=== PATIENT | female | born 1980 | race African-American/Black ===

== ENCOUNTER 2016-09-27 22:58 | Emergency (ER) | payer SELFPAY ==
[2016-09-27 23:07] VITALS: BP 120/82; PULSE 75; TEMP 97.8; BMI 28.8
[2016-09-27] MEDS ORDERED: KETOROLAC TROMETHAMINE 30 MG/1 ML VIAL IVPUSH ONE (23:07)
[2016-09-27] MEDS ORDERED: diazePAM 5 MG TABLET PO ONE (23:07)
--- NOTE | 2016-09-27 23:10 | PDOC ---
History of Present Illness - General Chief Complaint: Pain, Acute Stated Complaint: BACK PAIN RADIATING DOWN RIGHT LEG Time Seen by Provider: 09/27/16 23:05 History Source: Patient Exam Limitations: No Limitations - History of Present Illness Initial Comments: 09/27/16 23:05 36yo F with h/o low back pain and upper back pain . no new weakness or numbness. no bowel or bladder incontinence. has had for one month. today pain severe enough came to ED . taking motrin for pain no relief. pain lower back radiating down right leg. worse with position change and walking. has had similar in the past. 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 no f/c has noted blood in urine one week ago. no frequency dysuria or urgency 09/27/16 23:07 Past History - Past Medical History Allergies/Adverse Reactions: Allergies Allergy/AdvReac Type Severity Reaction Status Date / Time No Known Allergies Allergy Verified 09/27/16 22:59 Home Medications: Ambulatory Orders Diazepam [Valium] 5 mg PO Q8H PRN #15 tablet MDD 3 09/27/16 Metformin HCl [Glucophage] 2,000 mg PO DAILY 09/27/16 Methylprednisolone [Medrol Dose Aj] 4 mg PO ASDIR #21 tablet 09/28/16 Oxycodone HCl/Acetaminophen [Percocet 5-325 mg Tablet] 1 tab PO Q4H PRN #15 tablet MDD 6 09/28/16 Review of Systems - Review of Systems Constitutional: No: Chills, Diaphoresis, Fever Respiratory: No: Cough, Orthopnea, Stridor Cardiac (ROS): No: Chest Pain ABD/GI: No: Vomiting : Yes: Hematuria. No: Burning, Dysuria Musculoskeletal: Yes: Back Pain. No: Gout, Joint Pain, Muscle Weakness Integumentary: No: Bruising, Change in Color Neurological: No: Headache, Numbness, Weakness, Unsteady Gait All Other Systems: Reviewed and Negative *Physical Exam - Physical Exam General Appearance: Yes: Nourished, Appropriately Dressed HEENT: positive: EOMI, REBECA Neck: positive: Trachea midline Respiratory/Chest: positive: Lungs Clear, Normal Breath Sounds. negative: Chest Tender, Respiratory Distress Cardiovascular: positive: Regular Rhythm, Regular Rate, S1, S2. negative: Edema Gastrointestinal/Abdominal: positive: Normal Bowel Sounds, Flat, Soft. negative : Tender Musculoskeletal: positive: Normal Inspection, CVA Tenderness, CVA Tenderness (R) , Muscle Spasm. negative: CVA Tenderness (L), Decreased Range of Motion, Vertebral Tenderness Extremity: positive: Normal Capillary Refill, Normal Inspection Integumentary: positive: Normal Color, Dry, Warm Neurologic: positive: Fully Oriented, Alert, Normal Mood/Affect, Normal Response , Motor Strength 5/5. negative: Sensory Deficit (bilat lower ext 5/5 flex/ ext. sensation intact throught. no midline v body tenderness. right lumbar paraspinal m spasm ttp. ) Medical Decision Making - Medical Decision Making 09/27/16 23:12 36 yo F with h/o PCOS here with sciatica like sxs. normal nuerological exam distally n/v intact. differential includes uti pyelo. plan ua ucg. pain control with nsaid and muscle relaxers. plan dc with medrol dose aj and muscle relaxer. pain medication. follow up with pcp for outp physical therapy. 09/28/16 00:35 pt feeling improved. ua negative ucg negative. dc hoem with rx for valium , percocet and medrol dose aj *DC/Admit/Observation/Transfer Diagnosis at time of Disposition: Sciatica - Discharge Dispostion Disposition: HOME Condition at time of disposition: Improved - Prescriptions Prescriptions: Methylprednisolone [Medrol Dose Aj] 4 mg PO ASDIR #21 tablet Oxycodone HCl/Acetaminophen [Percocet 5-325 mg Tablet] 1 tab PO Q4H PRN #15 tablet MDD 6 PRN Reason: Pain Diazepam [Valium] 5 mg PO Q8H PRN #15 tablet MDD 3 PRN Reason: Muscle Spasms - Patient Instructions Printed Discharge Instructions: Sciatica Additional Instructions: take medrol dose aj steroids as directed. take valium 5 mg every 8 hours as needed for muscle spasm. take percocet one every 6 hours as needed for pain. do not take at the same time as valium. return for numbness weakness or any concerns . follow up with your primary doctor. call to schedule. if pain continues you may need an outpatient MRI discuss with your primary doctor for referral.
[2016-09-27 23:14] LABS: PH,URINE 5.5 (4.5-8); URINE APPEARANCE Clear; URINE BILIRUBIN Negative (NEGATIVE); URINE BLOOD Negative (NEGATIVE); URINE COLOR YELLOW; URINE GLUCOSE (UA) Negative (NEGATIVE); URINE KETONE Negative (NEGATIVE); URINE LEUK ESTERASE 1+ (NEGATIVE); URINE NITRITE Negative (NEGATIVE); URINE PROTEIN Negative (NEGATIVE); URINE UROBILINOGEN 0.2 (0.2-1.0)
[2016-09-27 23:36] LABS: URINE RBC 0-2 /hpf (0-3)
== END 2016-09-28 00:40 | disposition home or self-care (01) ==
LOC: FER 22:58
PROC: 3E0333Z Introduction of Anti-inflammatory into Peripheral Vein, Percutaneous Approach (ICD-10-PCS; principal; 2016-09-27)
DX: M54.41 Lumbago with sciatica, right side (principal); E11.9 Type 2 diabetes mellitus without complications; Z79.84 Long term (current) use of oral hypoglycemic drugs; E28.2 Polycystic ovarian syndrome
CPT/HCPCS: 81003; 81015; 84703; 99281-25

== ENCOUNTER 2017-07-13 15:04 | Emergency (ER) | payer OTHER ==
[2017-07-13 15:14] VITALS: BP 95/60; PULSE 81; TEMP 98.3; BMI 27.1
[2017-07-13] MEDS ORDERED: diazePAM 5 MG TABLET PO ONE (15:53)
--- NOTE | 2017-07-13 15:53 | PDOC ---
History of Present Illness - History of Present Illness Initial Comments: 07/13/17 16:01 Patient is a 37F, with PMHx of PCOS , who presents today with recurring back pain. Patient states that her back pain is chronic and has presented itself intermittently for the past 8 years. She states that her back pain began 3 day sago (Wednesday) and has worsened since. She describes the pain as burning, originating in the right hip and travels to the lower back, worse with movement , and worse on the right side. She states that she took a muscle relaxer today without relief. She also reports some numbness, tingling, and weakness in her right leg. She states that the last time her back pain was this bad was approximately 1 year ago when she was seen here. At the time she was given Valium and Percocet and referred to physical therapy. She states that she does not see a physical therapist or a pain management doctor. She denies recent trauma or injury, she denies recent fever or incontinence. 07/13/17 16:05 <Chetna Carrera - Last Filed: 07/13/17 16:35> - General History Source: Patient Exam Limitations: No Limitations <Katt Lamas - Last Filed: 07/13/17 17:23> - General Chief Complaint: Back Pain Stated Complaint: back pain Past History <Chetna Carrera - Last Filed: 07/13/17 16:35> - Past Medical History COPD: No Other medical history: PCOS - Suicide/Smoking/Psychosocial Hx Smoking History: Never smoked Have you smoked in the past 12 months: No Hx Alcohol Use: No Drug/Substance Use Hx: No Substance Use Type: None <Katt Lamas - Last Filed: 07/13/17 17:23> - Past Medical History Allergies/Adverse Reactions: Allergies Allergy/AdvReac Type Severity Reaction Status Date / Time No Known Allergies Allergy Verified 07/13/17 15:05 Home Medications: Ambulatory Orders Metformin HCl [Glucophage] 2,000 mg PO DAILY 09/27/16 Diazepam [Valium] 5 mg PO Q8H PRN #15 tablet MDD 3 07/13/17 Methylprednisolone [Medrol Dose Aj] 4 mg PO ASDIR #21 tablet 07/13/17 Vit Calc,Iron,Folic [ Vitamins] 1 each PO DAILY 07/13/17 Review of Systems - Review of Systems Comments:: 07/13/17 16:02 GENERAL/CONSTITUTIONAL: No fever. +chills. HEAD, EYES, EARS, NOSE AND THROAT: No change in vision. No ear pain or discharge. No sore throat. GASTROINTESTINAL: No nausea, vomiting, diarrhea or constipation. GENITOURINARY: No dysuria, frequency, or change in urination. CARDIOVASCULAR: No chest pain or shortness of breath. RESPIRATORY: No cough, wheezing, or hemoptysis. MUSCULOSKELETAL: No joint or muscle swelling or pain. No neck pain. +back pain. SKIN: No rash NEUROLOGIC: +weakness, +numbness & tingling in right leg. No headache, vertigo , loss of consciousness. ENDOCRINE: No increased thirst. No abnormal weight change. HEMATOLOGIC/LYMPHATIC: No anemia, easy bleeding, or history of blood clots. ALLERGIC/IMMUNOLOGIC: No hives or skin allergy. <Chetna Carrera - Last Filed: 07/13/17 16:35> *Physical Exam - Vital Signs Last Vital Signs Temp Pulse Resp BP Pulse Ox 98.3 F 81 18 95/60 100 07/13/17 15:05 07/13/17 15:05 07/13/17 15:05 07/13/17 15:05 07/13/17 15:05 - Physical Exam Comments: 07/13/17 16:03 GENERAL: Awake, alert, and fully oriented, in no acute distress HEAD: No signs of trauma EYES: PERRLA, EOMI, sclera anicteric, conjunctiva clear ENT: Auricles normal inspection, nares patent, Moist mucosa NECK: Normal ROM, supple, no lymphadenopathy, JVD, or masses LUNGS: Breath sounds equal, clear to auscultation bilaterally. No wheezes, and no crackles HEART: Regular rate and rhythm, normal S1 and S2, no murmurs, rubs or gallops BACK: No midline spinal tenderness. Paraspinal muscle spasms to right lumbar side. 5/5 LE strength, sensation intact throughout. ABDOMEN: Soft, nontender, normoactive bowel sounds. No guarding, no rebound. No masses EXTREMITIES: Normal range of motion, no edema. No clubbing or cyanosis. No cords, erythema, or tenderness NEUROLOGICAL: Normal speech SKIN: Warm, Dry, normal turgor, no rashes or lesions noted. <Chetna Carrera Last Filed: 07/13/17 16:35> - Vital Signs Last Vital Signs Temp Pulse Resp BP Pulse Ox 98.3 F 81 18 95/60 100 07/13/17 15:05 07/13/17 15:05 07/13/17 15:05 07/13/17 15:05 07/13/17 15:05 <Katt Lamas - Last Filed: 07/13/17 17:23> ED Treatment Course - ADDITIONAL ORDERS Additional order review: Laboratory Results 07/13/17 15:30 Urine HCG, Qual Negative <Chetna Carrera - Last Filed: 07/13/17 16:35> Medical Decision Making - Medical Decision Making 07/13/17 15:38 37 yo F with h/o chronic low back alex here with sciatic like symptoms will treat with muscle relaxers, and anti inflammatories. <Katt Lamas - Last Filed: 07/13/17 17:23> *DC/Admit/Observation/Transfer - Attestations Scribe Attestion: 07/13/17 16:04 Documentation prepared by Chetna Carrera, acting as medical transcription supervisor for Katt Lamas MD. <Chetna Carrera - Last Filed: 07/13/17 16:35> <Katt Lamas - Last Filed: 07/13/17 17:23> Diagnosis at time of Disposition: Low back strain - Discharge Dispostion Disposition: HOME Condition at time of disposition: Improved - Prescriptions Prescriptions: Diazepam [Valium] 5 mg PO Q8H PRN #15 tablet MDD 3 PRN Reason: Muscle Spasms Methylprednisolone [Medrol Dose Aj] 4 mg PO ASDIR #21 tablet - Patient Instructions Printed Discharge Instructions: Sciatica Additional Instructions: no heavy lifting for one week. you should follow up with your primary doctor. return for any problems or concerns. you should take medrol dose aj as prescribed. you can also take valium 5 mg every 8 hrs as needed for muscle spasm. follow up with your primary doctor to discuss a referral for physical therapy. - Post Discharge Activity Forms/Work/School Notes: Back to Work
[2017-07-13] MEDS ORDERED: KETOROLAC TROMETHAMINE 30 MG/1 ML VIAL IM ONE (16:01)
[2017-07-13] MEDS ORDERED: KETOROLAC TROMETHAMINE 30 MG/1 ML VIAL ONE (16:03)
[2017-07-13] MEDS ORDERED: diazePAM 5 MG TABLET ONE (16:03)
== END 2017-07-13 17:31 | disposition home or self-care (01) ==
LOC: FER 15:04
PROC: 3E0233Z Introduction of Anti-inflammatory into Muscle, Percutaneous Approach (ICD-10-PCS; principal; 2017-07-13)
DX: S39.012A Strain of muscle, fascia and tendon of lower back, initial encounter (principal); X58.XXXA Exposure to other specified factors, initial encounter; Y93.9 Activity, unspecified; Y92.9 Unspecified place or not applicable
CPT/HCPCS: 84703; 96372; 99282-25

== ENCOUNTER 2021-10-30 11:20 | Emergency (ER) | payer OTHER ==
[2021-10-30 11:37] VITALS: BMI 25.4
[2021-10-30] MEDS ORDERED: ACETAMINOPHEN 500 MG TABLET (FP) PO ONE (12:00)
[2021-10-30] MEDS ORDERED: ACETAMINOPHEN 500 MG TABLET (FP) ONE (12:03)
[2021-10-30 12:08] VITALS: BP 114/65; RESP 18
[2021-10-30 13:17] VITALS: TEMP 99.5
[2021-10-30 13:29] VITALS: PULSE 95
== END 2021-10-30 14:15 | disposition home or self-care (01) ==
LOC: FER 11:20
DX: R05.9 Cough, unspecified (principal)
CPT/HCPCS: 0241U-QW; 71045-TC-FY; 99284-25